=== PATIENT | male | born 1965 | race American Indian/Alaskan Native ===

== ENCOUNTER 2016-06-06 12:31 | Inpatient (IN) | payer OTHER ==
[2016-06-06] MEDS ORDERED: NACL 0.9% 1000 ML 1,000 ML IV ONE ×2 (14:13→15:40)
[2016-06-06] MEDS ORDERED: PROTONIX IV ONE (14:13)
[2016-06-06] MEDS ORDERED: PEPCID IV ONE (14:13)
[2016-06-06 14:34] LABS: Basophils % (Auto) 0.3 % (0.0-1.8); Eosinophils % (Auto) 0.1 % (0.0-4.3); Hemoglobin 7.6 gm/dl (11.8-15.2); Mean Corpuscular HGB Conc 33 % (32-34); Mean Corpuscular Hemoglobin 31 pg (28-32); Mean Corpuscular Volume 94 fl (84-94); Platelet Count 157 K/mm3 (140-440); Red Blood Count 2.44 M/mm3 (3.65-5.03); Red Cell Distribution Width 12.9 % (13.2-15.2); White Blood Count 12.7 K/mm3 (4.5-11.0)
[2016-06-06 14:42] LABS: INR 1.06 (0.87-1.13)
[2016-06-06 14:55] LABS: Alanine Aminotransferase 13 units/L (7-56); Albumin 3.1 g/dL (3.9-5); Albumin/Globulin Ratio 1.3 %; Alkaline Phosphatase 72 units/L (35-129); Anion Gap 21 mmol/L; Bilirubin,Total 0.4 mg/dL (0.1-1.2); Blood Urea Nitrogen 56 mg/dL (9-20); Calcium 7.6 mg/dL (8.4-10.2); Carbon Dioxide 19 mmol/L (22-30); Chloride 100.1 mmol/L (98-107); Glucose 466 mg/dL (75-100); Lipase 52 units/L (13-60); Sodium 133 mmol/L (137-145); Total Protein 5.5 g/dL (6.3-8.2)
[2016-06-06] MEDS ORDERED: ZOFRAN ONE (15:11)
[2016-06-06] MEDS ORDERED: ZOFRAN IV ONE (15:11)
[2016-06-06 15:24] LABS: Potassium 7.3 mmol/L (3.6-5.0)
[2016-06-06] MEDS ORDERED: NACL 0.9% 500 ML 500 ML IV ONE (15:42)
--- NOTE | 2016-06-06 15:46 | Emergency Department Report ---
HPI - General Chief Complaint: GI Bleed Time Seen by Provider: 06/06/16 14:12 - HPI HPI: The patient is a 42-year-old male with a history of diabetes, peptic ulcer and GI bleeding, presents for evaluation of abdominal pain and blood in his stool. He states that his abdominal pain has been mild, crampy in quality, upper abdominal in location: Excessive since onset at 11 AM this morning, approximately 1-2 hours prior to my evaluation. He states that he has expressed to episodes of dark bloody stools over the same duration. The patient denies fever, chills, night sweats, vomiting, hematemesis, dysuria, hematuria, flank pain, genital discharge, hematuria, hemoptysis, recurrent epistaxis, or easy bruising or bleeding. He states that he is not on a blood thinner. ED Past Medical Hx - Past Medical History Hx Hypertension: Yes Hx Heart Attack/AMI: Yes (EF 55-60%) Hx Diabetes: Yes Hx Arthritis: No Hx COPD: No Hx HIV: No Additional medical history: history of black stools - Social History Smoking Status: Former Smoker Substance Use Type: None - Medications Home Medications: Home Medications Medication Instructions Recorded Confirmed Last Taken Type Metformin HCl [Glucophage] 1,000 mg PO BID 06/06/16 06/06/16 06/05/16 History ED Review of Systems ROS: Stated complaint: BLOODY STOOLS/DIZZY Other details as noted in HPI Constitutional: denies: fever ENT: denies: throat or neck pain Respiratory: denies: cough, shortness of breath Cardiovascular: denies: chest pain Endocrine: denies unexplained weight loss or gain Gastrointestinal: reports abdominal pain, nausea Genitourinary: reports melana denies: dysuria Musculoskeletal: denies: leg swelling Skin: denies: rash Neurological: denies: headache Hematological/Lymphatic: denies: easy bleeding or easy bruising Psych: denies sadness or hopelessness \ Physical Exam - Physical Exam Vital Signs: Vital Signs 06/06/16 06/06/16 06/06/16 14:02 14:50 15:00 Temperature 97.0 F L Pulse Rate 77 84 85 Respiratory 20 14 14 Rate Blood Pressure 101/57 97/67 O2 Sat by Pulse 99 99 99 Oximetry 06/06/16 06/06/16 15:11 15:27 Temperature Pulse Rate 82 Respiratory 13 16 Rate Blood Pressure 97/67 O2 Sat by Pulse 100 99 Oximetry Physical Exam: General: well-nourished, well-developed, no acute distress Head: Normocephalic, atraumatic Eyes: normal sclera ENT: Mucous membranes are pale and dry Neck: No neck stiffness, no cervical adenopathy Respiratory: Breath sounds equal bilaterally, no wheezing, rales, or rhonchi Cardio: S1 and S2 present, no murmurs, rubs, gallops, capillary refill is delayed Abdomen: Normoactive bowel sounds, soft abdomen, epigastric tenderness to palpation present, no rigidity, no guarding or rebound tenderness Musc: No pitting edema Skin: No rash Neuro: no facial drooping, normal speech Psych: Normal affect ED Course Vital Signs 06/06/16 06/06/16 06/06/16 14:02 14:50 15:00 Temperature 97.0 F L Pulse Rate 77 84 85 Respiratory 20 14 14 Rate Blood Pressure 101/57 97/67 O2 Sat by Pulse 99 99 99 Oximetry 06/06/16 06/06/16 15:11 15:27 Temperature Pulse Rate 82 Respiratory 13 16 Rate Blood Pressure 97/67 O2 Sat by Pulse 100 99 Oximetry ED Medical Decision Making - Lab Data Result diagrams: 06/06/16 14:16 06/06/16 14:16 - Medical Decision Making The patient was seen and examined by myself. The patient is placed on a occupational health technician and continuous pulse ox. On initial evaluation, the patient was found to be in no distress, with hypertension, initial blood pressure 81/60 per EMS on arrival to triage. The patient is given 1 L normal saline fluid bolus via EMS. Evaluation orders are placed. The patient is given IV Pepcid and Protonix for treatment of GI bleeding and his pain. Lab results revealed low hemoglobin of 7.6, elevated potassium of 7.3, elevated glucose of 460, low bicarbonate, and elevated anion gap, consistent with diabetic ketoacidosis and severe anemia likely secondary to GI bleed. Otherwise labs were non-concerning including WBC, hemoglobin, hematocrit, electrolytes, renal function, LFTs, lipase, and urinalysis. The patient was reevaluated and found to have decreasing blood pressure, now in the 90s/60s. NS fluid bolus and one unit of PRBCs are ordered for treatment of the patient's hypovalemia and anemia. The patient is given IV insulin for treatment of DKA and hyperkalemia. I also ordered for treatment of hyperkalemia. The on-call hospitalist service was contacted. They agreed to admit the patient for further treatment and close monitoring. The ED admit order was placed. The patient was admitted in guarded condition. Critical Care Time: Yes Critical care time in (mins) excluding proc time.: 35 (35) Critical care attestation.: Due to the critical nature of this patients presentation, which necessitated multiple bedside assessments, manipulation and supportive measures to prevent further life threatening deterioration, I would like to bill for a total of 35 minutes of critical care time. This was exclusive of any separately billable procedures. Critical Care Time: 35 ED Disposition Clinical Impression: Severe anemia, Anemia requiring transfusions, Dehydration, Hypovolemic shock, Acute hyperkalemia DKA (diabetic ketoacidoses) Qualifiers: Diabetes mellitus type: type 2 Diabetes mellitus complication detail: without coma Qualified Code(s): E13.10 - Other specified diabetes mellitus with ketoacidosis without coma GI bleeding Qualifiers: GI bleed type/associated pathology: melena Qualified Code(s): K92.1 - Melena Disposition: OP ADMITTED IP TO THIS HOSP Is pt being admited?: Yes Does the pt Need Aspirin: Yes Condition: Critical Instructions: Diabetic Ketoacidosis (ED) Referrals: JOHNY STALLINGS MD [Primary Care Provider] - 3-5 Days Forms: Accompanied Note Time of Disposition: 15:46
[2016-06-06] MEDS ORDERED: CALCIUM GLUCONATE 1,000 MG in NACL 0.9% 100 ML IV ONE (16:00)
[2016-06-06] MEDS ORDERED: DULCOLAX PR PRN (21:28)
[2016-06-06] MEDS ORDERED: TYLENOL PO PRN (21:28)
[2016-06-06] MEDS ORDERED: ZOFRAN IV PRN (21:28)
[2016-06-06] MEDS ORDERED: DILAUDID IV PRN (21:28)
[2016-06-06] MEDS ORDERED: MILK OF MAGNESIA PO PRN (21:28)
[2016-06-06] MEDS ORDERED: SODIUM BICARBONATE IV ONE (21:31)
[2016-06-06] MEDS ORDERED: CALCIUM GLUCONATE 2,000 MG in NACL 0.9% 100 ML IV ONE (21:32)
[2016-06-06] MEDS ORDERED: NACL 0.45% 1000 ML 1,000 ML IV SCH (22:00)
--- NOTE | 2016-06-06 22:18 | History and Physical Report ---
CHIEF COMPLAINT: Abdominal pain and blood in the stool. HISTORY OF PRESENT ILLNESS: A 50-year-old male with history of diabetes, on metformin for many years, comes in for black tarry stools and abdominal pain. Abdominal pain is crampy in quality and the patient's pain is 5 on a scale of 1-10. Bright red blood per rectum and tarry stools. Hyperintense this morning. No fever, no chills. PAST MEDICAL HISTORY: Significant for hypertension, diabetes, acute IN, and peptic ulcer disease. SOCIAL HISTORY: Former smoker. PAST SURGICAL HISTORY: None. CURRENT MEDICATIONS: Metformin. REVIEW OF SYSTEMS: Bright blood per rectum and abdominal pain. Otherwise, review of systems negative. All 14-point review of systems done. PHYSICAL EXAMINATION: GENERAL: An young male, cooperative during examination. VITAL SIGNS: Temperature 97.0, pulse is 77, respirations are 20, blood pressure is 101/57, orthostatic, repeat blood pressure is 97/67. HEENT: Pale mucous membranes. NECK: Supple, no lymphadenopathy, no thyromegaly. LUNGS: Clear to auscultation and percussion. Good air entry. CARDIOVASCULAR: S1, S2 heard. No gallop, no murmur, no rub. Apical impulses in the left fifth intercostal space and midclavicular line. ABDOMEN: Soft, occult blood positive. MUSCULOSKELETAL SYSTEM: Normal. CENTRAL NERVOUS SYSTEM: Alert and oriented x 4, normal. NEUROLOGIC: No focal deficits. SKIN: Normal. LABORATORY DATA: Significant for sugar of 450 in the ER,. Sodium is 133, potassium is 7.3. BUN and creatinine 56 and 0.8. H and H is 7.6 and 23.0. EKG, normal sinus rhythm, nonspecific ST or T-wave change. ASSESSMENT: 1. Gastrointestinal bleed. The patient is started on Protonix drip. The patient to get a GI consult. The patient needs upper endoscopy. Possible lower endoscopy. 2. Non-insulin dependent diabetes, coverage for now. Adjust medications. Metformin is not sufficient. The patient's A1c ordered. 3. Hypertension. The patient not on any medications. We will monitor his blood pressures and start on antihypertensives if necessary. At this point, his blood pressures have been reasonable, 107/53. 4.Prerenal azotemia sec to GI Bleed-should correct with IV Fluids. PLAN: 1. In summary, the patient has a lower gastrointestinal bleed with dye stools. 2. Uncontrolled diabetes, hyperosmolar state. 3. Hyperkalemia. For the hyperkalemia, calcium gluconate and sodium bicarbonate were given. BMP to be checked again. 4. Deep venous thrombosis prophylaxis only with sequential compression devices. JOB# [id number] [facility] L[facility]
[2016-06-06 23:28] LABS: Hematocrit 21.1 % (35.5-45.6); Hemoglobin 7.1 gm/dl (11.8-15.2)
[2016-06-06 23:45] LABS: Anion Gap 16 mmol/L; BUN/Creatinine Ratio 46.25; Blood Urea Nitrogen 37 mg/dL (9-20); Calcium 7.6 mg/dL (8.4-10.2); Carbon Dioxide 22 mmol/L (22-30); Chloride 105.9 mmol/L (98-107); Glucose 205 mg/dL (75-100); Sodium 140 mmol/L (137-145)
[2016-06-07] MEDS: NOVOLOG SUB-Q SCH ×6 (01:01→18:45)
[2016-06-07] MEDS: PROTONIX 80 MG in NACL 0.9% 100 ML IV SCH ×3 (01:13→22:20)
--- NOTE | 2016-06-07 01:14 | Admit Criteria Form ---
Admission Criteria Documentation: HYPONATREMIA; HYPERNATREMIA; HYPOKALEMIA; HYPERKALEMIA; HYPOCALCEMIA; HYPERCALCEMIA Clinical Indications for Inpatient Care (Place 'X' for any and all applicable criteria): Ongoing inpatient care may be indicated for ANY ONE of the following [G](1)(2)(3 )(5): [ ]I. Hyponatremia with ANY ONE of the following: [ ]a) Sodium less than 130 mEq/L (mmol/L) (new) (6)(22) [ ]b) Sodium less than 135 mEq/L (mmol/L) with ANY ONE of the following: [ ]i) Severe medical etiology requiring inpatient management (eg, heart failure, hypovolemia) [ ]ii) Altered mental status [ ]iii) Seizures [ ]II. Hypernatremia with ANY ONE of the following: [ ]a) Sodium greater than 155 mEq/L (mmol/L) [ ]b) Sodium greater than 150 mEq/L (mmol/L) with ANY ONE of the following: [ ] i) Altered mental status [ ]ii) Seizures [ ]iii) Severe medical etiology (eg, hypovolemia, diabetes insipidus) [ ]iv) Severe weakness [ ]v) Severe medical etiology (eg, hemolysis, infection, drug overdose) [ ]III. Hypokalemia with ANY ONE of the following: [ ]a) Potassium less than 2.5 mEq/L (mmol/L) despite outpatient and emergency treatment [ ]b) Potassium less than 3.0 mEq/L (mmol/L) with ANY ONE of the following: [ ]i) Weakness [ ]ii) Cardiac abnormality (eg, arrhythmia, conduction disturbance) [ ]iii) Cardiac ischemia [ ]iv) Ileus [ ]v) Ongoing medical cause requiring inpatient management. ( e.g., acute renal wasting, SIADH) [ ]vi) Other severe symptoms [ X] IV. Hyperkalemia with ANY ONE of the following: [ X]a) Potassium greater than 6.5 mEq/L (mmol/L) [ ]b) Potassium greater than 5 mEq/L (mmol/L) with ANY ONE of the following: [ ]i) Severe ECG findings [H] [ ]ii) Acute worsening of renal failure (creatinine greater than 2.5 mg/dL (221 micromoles/L) or significant elevation for age and size) [ ] V. Hypocalcemia with ANY ONE of the following: [ ]a) Calcium less than 7 mg/dL (1.75 mmol/L) despite outpatient and emergency treatment(19) [ ]b) Calcium less than 8 mg/dL (2 mmol/L) with significant symptoms or findings; examples include: [ ]i) Cardiac abnormality (eg, arrhythmia or conduction disturbance) [ ]ii) Altered mental status [ ]iii) Seizures [ ]iv) Breathing difficulty [ ]v) Muscle spasms [ ]. Hypercalcemia with ANY ONE of the following: [ ]a) Calcium greater than 14 mg/dL (3.5 mmol/L) [ ]b) Calcium greater than 12 mg/dL (3 mmol/L) with ANY ONE of the following: [ ]i) Significant dehydration or hypovolemia as indicated by ANY ONE of the following(2): [ ]1. Clinically significant dehydration as indicated by ANY ONE of the following: [ ]A. Acute loss of weight from baseline (5% of body weight in adults, 9% in pediatric patients) [ ]B. Hemodynamic instability [ ]C. Acute renal failure [ ]D. Serum sodium greater than 150 mEq/L (mmol/L) [ ]2) Dehydration that is persistent indicated by ALL of the following: [ ]A. Oral rehydration therapy not tolerated or insufficient to adequately correct dehydration [ ]B. Appropriate intravenous treatment (eg, fluids ) does not readily correct dehydration ie, after 12 to 24 hours of treatment) [ ]ii) Significant symptoms or findings; examples include: [ ]1) Altered mental status [ ]2) Cardiac abnormality (eg, arrhythmia, conduction disturbance) [ ]3) Cardiac abnormality (eg, arrhythmia, conduction disturbance) The original [employer] content created by [employer] has been revised. The portions of the content which have been revised are identified through the use of italic text or in bold, and [facility] [employer] has neither reviewed nor approved the modified material. All other unmodified content is copyright [facility] [employer] Please see references footnoted in the original [facility] [employer] by [employer] edition 2016 Admission Criteria Met: Yes
[2016-06-07 07:01] LABS: Basophils % (Auto) 0.3 % (0.0-1.8); Eosinophils % (Auto) 0.3 % (0.0-4.3); Hematocrit 20.7 % (35.5-45.6); Hemoglobin 6.8 gm/dl (11.8-15.2); Mean Corpuscular HGB Conc 33 % (32-34); Mean Corpuscular Hemoglobin 31 pg (28-32); Mean Corpuscular Volume 94 fl (84-94); Platelet Count 123 K/mm3 (140-440); Red Cell Distribution Width 13.2 % (13.2-15.2); White Blood Count 13.1 K/mm3 (4.5-11.0)
[2016-06-07 07:24] LABS: Alanine Aminotransferase 11 units/L (7-56); Albumin 2.9 g/dL (3.9-5); Albumin/Globulin Ratio 1.2 %; Alkaline Phosphatase 60 units/L (35-129); Anion Gap 17 mmol/L; BUN/Creatinine Ratio 35.71; Bilirubin,Total 0.4 mg/dL (0.1-1.2); Blood Urea Nitrogen 25 mg/dL (9-20); Carbon Dioxide 22 mmol/L (22-30); Chloride 106.8 mmol/L (98-107); Glucose 208 mg/dL (75-100); Sodium 142 mmol/L (137-145); Total Protein 5.3 g/dL (6.3-8.2)
[2016-06-07] MEDS ORDERED: NACL 0.9% 500 ML 500 ML IV ONE (10:00)
[2016-06-07] MEDS ORDERED: NACL 0.9% 500 ML 500 ML IV SCH ×2 (12:00→18:00)
[2016-06-07] MEDS ORDERED: NACL 0.9% 1000 ML 1,000 ML ONE (13:45)
[2016-06-07] MEDS ORDERED: NACL 0.9% 1000 ML 1,000 ML IV SCH (14:00)
--- NOTE | 2016-06-07 14:04 | Anesthesia Day of Surgery ---
Anesthesia Day of Surgery - Day of Surgery Patient Examined: Yes Patient H&P Reviewed: Yes Patient is NPO: Yes Beta Blockers: Yes Cardiac Clearance: No Pulmonary Clearance: No
--- NOTE | 2016-06-07 14:05 | Anesthesia Consultation ---
Anesthesia Consult and Med Hx Date of service: 06/07/16 - Airway Anesthetic Teeth Evaluation: Good ROM Head & Neck: Adequate Mental/Hyoid Distance: Adequate Mallampati Class: Class II Intubation Access Assessment: Probably Good - Pulmonary Exam CTA: Yes (clear) - Cardiac Exam Cardiac Exam: RRR - Pre-Operative Health Status ASA Pre-Surgery Classification: ASA4 Proposed Anesthetic Plan: MAC - Pulmonary Hx Asthma: No COPD: No Hx Pneumonia: No - Cardiovascular System Hx Hypertension: Yes Hx Coronary Artery Disease: Yes (stemi, s/p angioplasty and stenting on 12/30/15 ) Hx Heart Attack/AMI: Yes Hx Angina: Yes (none since angioplasty) Hx Percutaneous Transluminal Coronary Angioplasty (PTCA): Yes - Central Nervous System Hx Psychiatric Problems: No - Gastrointestinal Hx Ulcer: Yes - Endocrine Hx End Stage Renal Disease: No Hx Insulin Dependent Diabetes: Yes - Hematic Hx Anemia: No - Other Systems Hx Alcohol Use: Yes (occasional) Hx Cancer: No - Additional Comments Anesthesia Medical History Comments: receiving PRBC now for anemia
--- NOTE | 2016-06-07 14:12 | Progress Note ---
Assessment and Plan Assessment and plan: Acute GI bleed. he has bloody stools. GI consulted. For endoscopy today. Anemia due to acute blood loss. Hemoglobin currently 6.8. Was 7.6 on admission and he has had 1 unit PRBC. Transfuse 2 more units PRBC. I discussed with patient. Hyperkalemia. This is now resolved. Potassium was 7.3 on admission but is now 4.0 after treatment. Diabetes mellitus type 2. Check fingerstick glucose before every meal and at bedtime. Obesity Full CODE STATUS History Interval history: Bloody stools, Abdominal pain Hospitalist Physical - Physical exam Narrative exam: Gen: Not in acute distress, obese HEENT: Normocephalic, atraumatic Neck: supple, no JVD Lungs:Lungs clear to auscultation, bilaterally, no crackles or wheeze Heart S1-S2 regular, no murmurs rubs or gallop, Abdomen: soft, mild tender, non distended, normal bowel sounds , Ext: No edema, clubbing or cyanosis. Neuro: Awake.alert, oriented x 3, non focal - Constitutional Vitals: Temp Pulse Resp BP Pulse Ox 98.6 F 88 11 L 120/67 97 06/07/16 14:05 06/07/16 14:05 06/07/16 14:05 06/07/16 14:05 06/07/16 14:05 Results - Labs CBC & Chem 7: 06/07/16 06:05 06/07/16 06:05 Labs: Laboratory Last Values WBC 13.1 K/mm3 (4.5-11.0) H 06/07/16 06:05 RBC 2.20 M/mm3 (3.65-5.03) L 06/07/16 06:05 Hgb 6.8 gm/dl (11.8-15.2) L 06/07/16 06:05 Hct 20.7 % (35.5-45.6) L 06/07/16 06:05 MCV 94 fl (84-94) 06/07/16 06:05 MCH 31 pg (28-32) 06/07/16 06:05 MCHC 33 % (32-34) 06/07/16 06:05 RDW 13.2 % (13.2-15.2) 06/07/16 06:05 Plt Count 123 K/mm3 (140-440) L 06/07/16 06:05 Lymph % (Auto) 12.3 % (13.4-35.0) L 06/07/16 06:05 [place] % (Auto) 8.0 % (0.0-7.3) H 06/07/16 06:05 Eos % (Auto) 0.3 % (0.0-4.3) 06/07/16 06:05 Baso % (Auto) 0.3 % (0.0-1.8) 06/07/16 06:05 Lymph # 1.6 K/mm3 (1.2-5.4) 06/07/16 06:05 [place] # 1.1 K/mm3 (0.0-0.8) H 06/07/16 06:05 Eos # 0.0 K/mm3 (0.0-0.4) 06/07/16 06:05 Baso # 0.0 K/mm3 (0.0-0.1) 06/07/16 06:05 Seg Neutrophils % 79.1 % (40.0-70.0) H 06/07/16 06:05 Seg Neutrophils # 10.4 K/mm3 (1.8-7.7) H 06/07/16 06:05 PT 13.7 Sec. (12.2-14.9) 06/06/16 14:16 INR 1.06 (0.87-1.13) 06/06/16 14:16 APTT 20.0 Sec. (24.2-36.6) L 06/06/16 14:16 VBG pH 7.257 (7.320-7.420) L 06/06/16 14:49 Sodium 142 mmol/L (137-145) 06/07/16 06:05 Potassium 4.0 mmol/L (3.6-5.0) 06/07/16 06:05 Chloride 106.8 mmol/L (98-107) 06/07/16 06:05 Carbon Dioxide 22 mmol/L (22-30) 06/07/16 06:05 Anion Gap 17 mmol/L 06/07/16 06:05 BUN 25 mg/dL (9-20) H 06/07/16 06:05 Creatinine 0.7 mg/dL (0.8-1.5) L 06/07/16 06:05 Estimated GFR > 60 ml/min 06/07/16 06:05 BUN/Creatinine Ratio 35.71 % 06/07/16 06:05 Glucose 208 mg/dL (75-100) H 06/07/16 06:05 POC Glucose 271 (70-105) H 06/06/16 17:35 Hemoglobin A1c 10.7 % (4-6) H 06/07/16 06:05 Lactic Acid 0.8 mmol/L (0.7-2.0) 06/07/16 08:36 Calcium 8.0 mg/dL (8.4-10.2) L 06/07/16 06:05 Total Bilirubin 0.4 mg/dL (0.1-1.2) 06/07/16 06:05 AST 10 units/L (5-40) 06/07/16 06:05 ALT 11 units/L (7-56) 06/07/16 06:05 Alkaline Phosphatase 60 units/L (35-129) 06/07/16 06:05 Total Protein 5.3 g/dL (6.3-8.2) L 06/07/16 06:05 Albumin 2.9 g/dL (3.9-5) L 06/07/16 06:05 Albumin/Globulin Ratio 1.2 % 06/07/16 06:05 Lipase 52 units/L (13-60) 06/06/16 14:16 Blood Type O POSITIVE 06/06/16 14:16 Antibody Screen TNR 06/06/16 14:16 VANDA Antibody Screen Negative 06/06/16 14:16 Crossmatch See Detail 06/06/16 14:16
[2016-06-07] MEDS ORDERED: DIPRIVAN 10 MG/ML IV ONE ×2 (14:43→14:44)
[2016-06-07] MEDS ORDERED: XYLOCAINE MPF 2% ONE (14:44)
--- NOTE | 2016-06-07 15:03 | Post Anesthesia Evaluation ---
- Post Anesthesia Evaluation Patient Participated: Yes Airway Patent: Yes Stable Respiratory Function: Yes Nausea/Vomiting: No Temp > 96.8F: Yes Pain Manageable: Yes Adequeate Hydration: Yes Anesthesia Complications: No Block Receding Appropriately: Not Applicable Patient on Ventilator: No
--- NOTE | 2016-06-07 15:06 | Post Operative Note ---
Pre-op diagnosis: anemia,. gi bleed Post-op diagnosis: same Findings: EGD: hiatal hernia - white based (6-10 mm) ulcer x 2 antrum and incisura (bx's) - signs previous pud duodenum - negative other Procedure: EGD Anesthesia: MAC Surgeon: ОЛЬГА DOMINIQUE Estimated blood loss: none Pathology: list Specimen disposition: to lab Condition: stable Disposition: floor
--- NOTE | 2016-06-07 16:36 | Operative Report ---
INDICATION: 1. Anemia. 2. GI bleed. MEDICATIONS: Propofol per STEP DOWN NURSE. COMPLICATIONS: None. DESCRIPTION OF PROCEDURE: The patient was brought to procedure suite. The patient had the procedure discussed with him at length. All risks, complications, and benefits discussed, to which the patient signed for the procedure to be performed. The patient was placed in left lateral decubitus position. Mouth block was placed in the patient's oral cavity. After adequate sedation medication as above, the endoscope was introduced into the mouth and brought to the level of the second portion of duodenum. Retroflexion view performed. The patient's vital signs remained stable throughout the procedure. FINDINGS: There was irregular Z line noted at 37 cm from the gums. Small hiatal hernia at GE junction. The esophagus otherwise appeared to be normal. There was a 9-11 mm white based ulcer somewhat gastric antrum. No significant bleeding stigmata noted. Biopsies were taken and sent to pathology. Mild gastritis noted in the antrum. The stomach otherwise appeared to be normal. There were signs of previous peptic ulcer disease and was slight deformity noted in duodenal bulb. The duodenum otherwise appeared to be normal. Retroflexion view performed in the stomach showed no other pathology other than noted above. The patient tolerated the procedure well. No complications during the procedure. IMPRESSION: 1. Hiatal hernia. 2. Otherwise, normal esophagus. 3. Ulcers x 2 distal stomach with biopsy performed; otherwise normal stomach. 4. Somewhat deformed duodenal bulb, but otherwise normal duodenum. RECOMMENDATIONS: 1. Follow up biopsy results. 2. Stool for H. pylori, if present we will treat. 3. PPI p.o. b.i.d. 4. Avoid NSAIDs and aspirin. 5. If H and H stable discharge from GI standpoint. JOB# [id number] [facility] [facility]
[2016-06-07 17:06] LABS: Hematocrit 23.1 % (35.5-45.6); Hemoglobin 7.6 gm/dl (11.8-15.2)
--- NOTE | 2016-06-08 01:20 | Consultation ---
INDICATION: 1. Melena. 2. Possible GI bleed. HISTORY OF PRESENT ILLNESS: The patient is a 50-year-old black male with history of diabetes, history of peptic ulcer disease with perforation, status post surgery in 2016 and now presents with melena and black stools. The patient reports recent epigastric pain and started having black stools for the last 4-5 days. He reports coffee emesis. He reports no weight loss. The patient subsequently came to the Emergency Room, was evaluated and admitted, and GI consulted. PAST MEDICAL HISTORY: 1. Hypertension. 2. Diabetes. 3. Coronary artery disease. 4. Status post perforated ulcer. MEDICATIONS: See chart. ALLERGIES: No known drug allergies. SOCIAL HISTORY: Denies alcohol or tobacco. FAMILY HISTORY: Negative for colon cancer. REVIEW OF SYSTEMS: GENERAL: Reports mild weakness. HEENT: No visual complaints or tinnitus. PULMONARY: No shortness of breath. CARDIAVASCULAR: No chest pain. GASTROINTESTINAL: Reports black stools. All points of 13-point review of systems otherwise negative. PHYSICAL EXAMINATION: VITAL SIGNS: Temperature of 98.6, pulse 80, respirations 18, blood pressure 130/80. GENERAL: Fairly nourished, with no acute distress. HEENT: Pupils equal, round, reactive. PULMONARY: Clear to auscultation. CARDIOVASCULAR: Regular rate rhythm. ABDOMEN: Soft. SKIN: No obvious rashes. LABORATORY DATA: White count of 13.1, hemoglobin and hematocrit of 6.8 and 20.7, platelet count of 123. Coags within normal limits. Chem-7 stable. LFTs within normal limits. ASSESSMENT AND PLAN: A 50-year-old male with a history of perforated ulcer, now presents with signs and symptoms of upper gastrointestinal bleed. PLAN: 1. We will follow hematocrit and transfuse as needed. 2. PPI IV b.i.d. 3. Plan EGD today. 4. Further recommendation based on endoscopy results. JOB# [id number] [facility]/NTS MTDD
[2016-06-08] MEDS: NOVOLOG SUB-Q SCH ×3 (04:00→10:48)
[2016-06-08 07:58] LABS: Hematocrit 23.4 % (35.5-45.6); Hemoglobin 7.8 gm/dl (11.8-15.2)
[2016-06-08] MEDS: PROTONIX 80 MG in NACL 0.9% 100 ML IV SCH (08:00)
--- NOTE | 2016-06-08 09:28 | Discharge Summary ---
Providers - Providers Date of Admission: 06/06/16 19:20 Date of discharge: 06/08/16 Attending physician: TINO WYNNE 06/06/16 21:28 Consult to Physician [CONS] Routine Consulting Provider: ROSE GASTELUM Reason For Exam: gi hemorrhage Place consult to:: Office Notified:: yes Primary care physician: JOHNY STALLINGS Hospitalization Condition: Critical Disposition: STILL A PATIENT - Discharge Diagnoses (1) Anemia due to acute blood loss Status: Acute (2) Gastric ulcer Status: Acute Qualifiers: Gastric ulcer chronicity: G (3) Acute GI bleeding Status: Acute (4) Hypokalemia Status: Acute (5) Acute hyperkalemia Status: Acute (6) Hyperosmolar non-ketotic state in patient with type 2 diabetes mellitus Status: Acute Core Measure Documentation - Palliative Care Palliative Care/ Comfort Measures: Not Applicable Exam - Constitutional Vitals: Temp Pulse Resp BP Pulse Ox 98.2 F 83 18 133/69 99 06/08/16 04:44 06/08/16 04:44 06/08/16 04:44 06/08/16 04:44 06/08/16 04:44 Plan Activity: no restrictions Diet: low fat, low cholesterol, low salt, diabetic Additional Instructions: 1.Follow up with Dr. Stallings in 3-5 days. 2.Follow up with Dr. Carlos Hollins in 1 week Follow up with: JOHNY STALLINGS MD [Primary Care Provider] - 3-5 Days Forms: Accompanied Note Prescriptions: Cephalexin [Keflex] 500 mg PO Q12HR #14 cap Insulin NPH/Regular [NovoLIN 70/30] 10 unit SUB-Q BIDDIAB #1 vial Pantoprazole [Protonix] 40 mg PO BID #60 tablet
[2016-06-08 10:13] VITALS: BP 143/78
[2016-06-08 11:55] LABS: Bilirubin,Urine NEG (Negative); Blood,Urine NEG (Negative); Ketones,Urine TR mg/dL (Negative); Leukocyte Esterase,Urine NEG (Negative); Mucus,Urine FEW /HPF; Nitrite,Urine NEG (Negative); Protein,Urine <15 mg/dL mg/dL (Negative); Urobilinogen,Urine < 2.0 mg/dL (<2.0); WBC,Urine < 1.0 /HPF (0.0-6.0)
[2016-06-08] MEDS ORDERED: NOVOLOG SUB-Q ONE (12:04)
--- NOTE | 2016-06-08 12:53 | Gastroenterology Progress Note ---
Assessment and Plan GI: stable w/o further signs bleeding overnight - ppi qd - avoid nsaids/asa as possible - ok to d/c, call if needed Subjective Date of service: 06/08/16 Interval history: - no GI complaints overnight Objective - Constitutional Vitals: Temp Pulse Resp BP Pulse Ox 98.4 F 86 16 143/78 100 06/08/16 10:12 06/08/16 10:12 06/08/16 10:12 06/08/16 10:12 06/08/16 10:12 General appearance: no acute distress - Respiratory Respiratory: bilateral: CTA - Cardiovascular Rhythm: regular Heart Sounds: Present: S1 & S2 - Gastrointestinal General gastrointestinal: Present: soft, non-tender, non-distended - Labs CBC & Chem 7: 06/08/16 06:58 06/07/16 06:05 Labs: Laboratory Results - last 24 hr 06/06/16 06/07/16 06/07/16 23:54 04:56 08:27 Hgb Hct POC Glucose 222 H 228 H 333 H Urine Color Urine Turbidity Urine pH Ur Specific [place] Urine Protein Urine Glucose (UA) Urine Ketones Urine Blood Urine Nitrite Urine Bilirubin Urine Urobilinogen Ur Leukocyte Esterase Urine WBC (Auto) Urine RBC (Auto) U Epithel Cells (Auto) Urine Mucus 06/07/16 06/07/16 06/07/16 12:31 16:48 17:51 Hgb 7.6 L Hct 23.1 L POC Glucose 210 H 310 H Urine Color Urine Turbidity Urine pH Ur Specific [place] Urine Protein Urine Glucose (UA) Urine Ketones Urine Blood Urine Nitrite Urine Bilirubin Urine Urobilinogen Ur Leukocyte Esterase Urine WBC (Auto) Urine RBC (Auto) U Epithel Cells (Auto) Urine Mucus 06/07/16 06/08/16 06/08/16 20:24 06:41 06:58 Hgb 7.8 L Hct 23.4 L POC Glucose 411 H 260 H Urine Color Urine Turbidity Urine pH Ur Specific [place] Urine Protein Urine Glucose (UA) Urine Ketones Urine Blood Urine Nitrite Urine Bilirubin Urine Urobilinogen Ur Leukocyte Esterase Urine WBC (Auto) Urine RBC (Auto) U Epithel Cells (Auto) Urine Mucus 06/08/16 Unknown Hgb Hct POC Glucose Urine Color Straw Urine Turbidity Clear Urine pH 6.0 Ur Specific [place] 1.015 Urine Protein <15 mg/dl Urine Glucose (UA) >=500 Urine Ketones Tr Urine Blood Neg Urine Nitrite Neg Urine Bilirubin Neg Urine Urobilinogen < 2.0 Ur Leukocyte Esterase Neg Urine WBC (Auto) < 1.0 Urine RBC (Auto) 2.0 U Epithel Cells (Auto) < 1.0 Urine Mucus Few
[2016-06-08] MEDS ORDERED: KEFLEX PO SCH (13:00)
[2016-06-08] MEDS ORDERED: PROTONIX PO SCH (22:00)
== END 2016-06-08 18:01 | disposition home or self-care (01) | DRG 377 ==
LOC: ED 12:31 → 4A 19:20
PROVIDERS: ADMIT Internal Medicine; ATTEND Internal Medicine
PROC: 30233N1 Transfusion of Nonautologous Red Blood Cells into Peripheral Vein, Percutaneous Approach (ICD-10-PCS; principal; 2016-06-07)
PROC: 0DB68ZX Excision of Stomach, Via Natural or Artificial Opening Endoscopic, Diagnostic (ICD-10-PCS; 2016-06-07)
DX: K25.0 Acute gastric ulcer with hemorrhage (principal); E11.00 Type 2 diabetes mellitus with hyperosmolarity without nonketotic hyperglycemic-hyperosmolar coma (NKHHC); D62 Acute posthemorrhagic anemia; I10 Essential (primary) hypertension; K44.9 Diaphragmatic hernia without obstruction or gangrene; E87.5 Hyperkalemia; E86.0 Dehydration; E66.9 Obesity, unspecified; E11.9 Type 2 diabetes mellitus without complications; I25.10 Atherosclerotic heart disease of native coronary artery without angina pectoris; Z68.32 Body mass index [BMI] 32.0-32.9, adult; I25.2 Old myocardial infarction; Z87.891 Personal history of nicotine dependence; Z87.11 Personal history of peptic ulcer disease; Z79.84 Long term (current) use of oral hypoglycemic drugs
CPT/HCPCS: 36415; 80048; 80053; 81001; 82010; 82140; 82805; 82962; 83036; 83690; 85014; 85018; 85025; 85610; 85730; 86850; 86900; 86901; 86920; 87086; 88305; 88342; 93005; 93010; 96361; 96365; 96375; 99291; C9113; J0610; J1815; J2405; J2704; J7030; J7040; P9016

== ENCOUNTER 2016-10-23 22:12 | Emergency (ER) | payer SELFPAY ==
[2016-10-24] MEDS ORDERED: XYLOCAINE 2%/ EPI 1:200,000 INFILTRATI ONE (01:48)
[2016-10-24] MEDS ORDERED: NORCO 5/325 PO ONE (02:08)
[2016-10-24] MEDS ORDERED: NORCO 5/325 ONE (02:08)
[2016-10-24] MEDS ORDERED: ZOFRAN ODT ONE (02:08)
[2016-10-24] MEDS ORDERED: ZOFRAN ODT PO ONE (02:08)
[2016-10-24] MEDS ORDERED: MORPHINE ONE (02:40)
[2016-10-24 02:48] LABS: Basophils % (Auto) 0.9 % (0.0-1.8); Eosinophils % (Auto) 1.2 % (0.0-4.3); Hematocrit 42.9 % (35.5-45.6); Hemoglobin 14.5 gm/dl (11.8-15.2); Mean Corpuscular HGB Conc 34 % (32-34); Mean Corpuscular Hemoglobin 30 pg (28-32); Mean Corpuscular Volume 90 fl (84-94); Platelet Count 167 K/mm3 (140-440); Red Blood Count 4.78 M/mm3 (3.65-5.03); Red Cell Distribution Width 17.3 % (13.2-15.2); White Blood Count 12.2 K/mm3 (4.5-11.0)
[2016-10-24] MEDS ORDERED: MORPHINE IM ONE (02:48)
[2016-10-24] MEDS ORDERED: CLEOCIN 900 MG/50 mL 900 MG/50 ML BAG IV ONE (02:49)
[2016-10-24] MEDS ORDERED: NACL 0.9% 500 ML 500 ML IV ONE (02:49)
--- NOTE | 2016-10-24 03:04 | Emergency Department Report ---
- General Chief complaint: Skin/Abscess/Foreign Body Stated complaint: FEVER, BOIL, COUGH Time Seen by Provider: 10/24/16 01:17 Source: patient Mode of arrival: Ambulatory Limitations: No Limitations - History of Present Illness Initial comments: 51-year-old male past medical history hypertension, CT presents with complaint of one week of right upper back abscess. Patient denies fever or chills. Denies nausea or vomiting. Denies headache or dizziness. Accompanied by . Patient states that he has noticed redness of his skin behind right trapezius region. Noticed purulent drainage over the last day. Significant swelling of skin in this area. Visible purulent drainage in area MD complaint: abscess/boil Onset/Timin -: week(s) Tetanus Up to Date: yes Location: back (right upper back) Severity: moderate Severity scale (0 -10): 5 Quality: burning, aching Consistency: constant Improves with: none Worsens with: none Context: none Treatments Prior to Arrival: none - Related Data Previous Rx's Medication Instructions Recorded Last Taken Type Cephalexin [Keflex] 500 mg PO Q12HR #14 cap 06/08/16 Unknown Rx Insulin NPH/Regular [NovoLIN 70/30] 10 unit SUB-Q BIDDIAB #1 vial 06/08/16 Unknown Rx Pantoprazole [Protonix] 40 mg PO BID #60 tablet 06/08/16 Unknown Rx Cephalexin [Keflex] 500 mg PO Q6HR #28 capsule 10/24/16 Unknown Rx HYDROcodone/APAP 5-325 [[place] 1 each PO Q6HR PRN #8 tablet 10/24/16 Unknown Rx 5/325] Naproxen [Naprosyn TAB] 375 mg PO BID PRN #20 tablet 10/24/16 Unknown Rx Sulfamethoxazole/Trimethoprim 1 each PO BID #14 tablet 10/24/16 Unknown Rx [Bactrim DS TAB] Allergies Allergy/AdvReac Type Severity Reaction Status Date / Time No Known Allergies Allergy Unverified 02/27/13 00:56 Abscess Boil HPI - HPI Chief Complaint: Skin/Abscess/Foreign Body Stated Complaint: FEVER, BOIL, COUGH Time Seen by Provider: 10/24/16 01:17 Home Medications: Previous Rx's Medication Instructions Recorded Last Taken Type Cephalexin [Keflex] 500 mg PO Q12HR #14 cap 04/25/17 Unknown Rx Insulin NPH/Regular [NovoLIN 70/30] 10 unit SUB-Q BIDDIAB #1 vial 06/08/16 Unknown Rx Pantoprazole [Protonix] 40 mg PO BID #60 tablet 06/08/16 Unknown Rx Cephalexin [Keflex] 500 mg PO Q6HR #28 capsule 10/24/16 Unknown Rx HYDROcodone/APAP 5-325 [[place] 1 each PO Q6HR PRN #8 tablet 10/24/16 Unknown Rx 5/325] Naproxen [Naprosyn TAB] 375 mg PO BID PRN #20 tablet 10/24/16 Unknown Rx Sulfamethoxazole/Trimethoprim 1 each PO BID #14 tablet 10/24/16 Unknown Rx [Bactrim DS TAB] Allergies/Adverse Reactions: Allergies Allergy/AdvReac Type Severity Reaction Status Date / Time No Known Allergies Allergy Unverified 02/27/13 00:56 ED Review of Systems ROS: Stated complaint: FEVER, BOIL, COUGH Other details as noted in HPI Constitutional: denies: chills, fever Eyes: denies: eye pain, eye discharge, vision change ENT: denies: ear pain, throat pain Respiratory: denies: cough, shortness of breath, wheezing Cardiovascular: denies: chest pain, palpitations Endocrine: no symptoms reported Gastrointestinal: denies: abdominal pain, nausea, diarrhea Genitourinary: denies: urgency, dysuria Musculoskeletal: denies: back pain, joint swelling, arthralgia Skin: as per HPI (patient has visible abscess in right upper back region behind right trapezius). denies: rash, lesions Neurological: denies: headache, weakness, paresthesias Psychiatric: denies: anxiety, depression Hematological/Lymphatic: denies: easy bleeding, easy bruising ED Past Medical Hx - Past Medical History Previous Medical History?: Yes Hx Hypertension: Yes Hx Heart Attack/AMI: Yes Hx Diabetes: Yes Hx Arthritis: No Hx Asthma: No Hx COPD: No Hx HIV: No Additional medical history: history of black stools - Surgical History Past Surgical History?: Yes Additional Surgical History: stomach, cardiac stents - Social History Smoking Status: Former Smoker Substance Use Type: Alcohol - Medications Home Medications: Home Medications Medication Instructions Recorded Confirmed Last Taken Type Cephalexin [Keflex] 500 mg PO Q12HR #14 cap 06/08/16 Unknown Rx Insulin NPH/Regular [NovoLIN 70/30] 10 unit SUB-Q BIDDIAB #1 vial 06/08/16 Unknown Rx Pantoprazole [Protonix] 40 mg PO BID #60 tablet 06/08/16 Unknown Rx Cephalexin [Keflex] 500 mg PO Q6HR #28 capsule 10/24/16 Unknown Rx HYDROcodone/APAP 5-325 [[place] 1 each PO Q6HR PRN #8 tablet 10/24/16 Unknown Rx 5/325] Naproxen [Naprosyn TAB] 375 mg PO BID PRN #20 tablet 10/24/16 Unknown Rx Sulfamethoxazole/Trimethoprim 1 each PO BID #14 tablet 10/24/16 Unknown Rx [Bactrim DS TAB] ED Physical Exam - General Limitations: No Limitations General appearance: alert, in no apparent distress - Head Head exam: Present: atraumatic, normocephalic - Eye Eye exam: Present: normal appearance, PERRL, EOMI - ENT ENT exam: Present: mucous membranes moist - Neck Neck exam: Present: normal inspection, full ROM (neck flexion and extension intact) - Respiratory Respiratory exam: Present: normal lung sounds bilaterally. Absent: respiratory distress - Cardiovascular Cardiovascular Exam: Present: regular rate, normal rhythm. Absent: systolic murmur, diastolic murmur, rubs, gallop - GI/Abdominal GI/Abdominal exam: Present: soft, normal bowel sounds - Rectal Rectal exam: Present: deferred - Extremities Exam Extremities exam: Present: normal inspection - Back Exam Back exam: Present: normal inspection - Expanded Back Exam Expanded 1 - 10-12 cm diameter abscess with central cellulitis and purulent drainage from center. - Neurological Exam Neurological exam: Present: alert, oriented X3, CN II-XII intact, normal gait - Psychiatric Psychiatric exam: Present: normal affect, normal mood - Skin Skin exam: Present: warm, dry, intact, normal color, other (visible abscess right upper posterior shoulder/trapezius/right upper back region with visible purulent drainage). Absent: rash ED Course Vital Signs 10/23/16 10/24/16 22:28 03:38 Temperature 94.3 F L 99.8 F H Pulse Rate 94 H 75 Respiratory 18 16 Rate Blood Pressure 168/103 Blood Pressure 148/82 [Right] O2 Sat by Pulse 96 Oximetry - I & D Right Upper Back Type of Procedure: Simple Site: right upper back Blade Size: 11 I & D Procedure: betadine prep, sterile drapes applied, sterile dressing applied , gauze wick placed Progress: Area infiltrated with lidocaine 2% with epinephrine. Good local anesthesia achieved. Vertical stab incision made at center of abscess. ED Medical Decision Making - Lab Data Result diagrams: 10/24/16 02:32 10/24/16 02:32 - Medical Decision Making A/P: Right upper back abscess, right upper back cellulitis 1-labs show hyperglycemia, leukocytosis, lactic acid negative 2, wound culture sent 2-Pt given dose of IV clindamycin while in ED, will discharge with Bactrim and Keflex. Patient and his are requesting another medicine other than clindamycin. They're unable to elaborate why they want a different medicine. Bactrim and Keflex will cover both MRSA and strep cellulitis therefore I will prescribe the patient these 3-moderate amount of purulent drainage from the incision site, wound packed with iodoform gauze strip approximately 4 inches, half-inch strip. 4- I advised patient to return to the ED in 48 hours for wound check or to return to the ED for any fevers chills worsened pain reaccumulation of abscess nausea or vomiting inability to tolerate by mouth. Pt and his agreed to this plan. 5- normal vital signs upon discharge Critical care attestation.: If time is entered above; I have spent that time in minutes in the direct care of this critically ill patient, excluding procedure time. ED Disposition Clinical Impression: Abscess of upper back excluding scapular region, Abscess Disposition: DC- TO HOME OR SELFCARE Is pt being admited?: No Does the pt Need Aspirin: No Condition: Stable Instructions: Cellulitis (ED), Abscess Incision and Drainage (ED), Abscess (ED) Additional Instructions: Return to the ED in 48 hours for wound check Prescriptions: Cephalexin [Keflex] 500 mg PO Q6HR #28 capsule HYDROcodone/APAP 5-325 [[place] 5/325] 1 each PO Q6HR PRN #8 tablet PRN Reason: Pain Naproxen [Naprosyn TAB] 375 mg PO BID PRN #20 tablet PRN Reason: Pain Sulfamethoxazole/Trimethoprim [Bactrim DS TAB] 1 each PO BID #14 tablet Referrals: JOHNY STALLINGS MD [Primary Care Provider] - 3-5 Days Forms: Accompanied Note, Work/School Release Form(ED)
[2016-10-24 03:07] LABS: Anion Gap 22 mmol/L; BUN/Creatinine Ratio 11.66; Blood Urea Nitrogen 7 mg/dL (9-20); Calcium 9.3 mg/dL (8.4-10.2); Carbon Dioxide 23 mmol/L (22-30); Chloride 93.2 mmol/L (98-107); Glucose 213 mg/dL (75-100); Potassium 4.1 mmol/L (3.6-5.0); Sodium 134 mmol/L (137-145)
[2016-10-24 03:38] VITALS: BP 148/82
[2016-10-24 03:38] LABS: Erythrocyte Sedimentation Rate 18 mm/Hr (0-20)
== END 2016-10-24 04:10 | disposition home or self-care (01) ==
LOC: ED 22:12
DX: L02.212 Cutaneous abscess of back [any part, except buttock and flank] (principal); I10 Essential (primary) hypertension; I25.2 Old myocardial infarction; E11.9 Type 2 diabetes mellitus without complications; Z87.891 Personal history of nicotine dependence; Z79.4 Long term (current) use of insulin
CPT/HCPCS: 10060; 36415; 80048; 82140; 82962; 85025; 85652; 87076; 87116; 87186; 96365; 96372; 99284; J2270; J7040; Q0162

== ENCOUNTER 2018-08-15 10:34 | Emergency (ER) | payer SELFPAY ==
[2018-08-15 11:05] VITALS: BP 127/74
--- NOTE | 2018-08-15 12:19 | Emergency Department Report ---
ED General Adult HPI - General Chief complaint: Extremity Problem,Nontraumatic Stated complaint: L FOOT/R EYE PAIN Time Seen by Provider: 08/15/18 11:11 Source: patient Mode of arrival: Ambulatory Limitations: No Limitations - History of Present Illness Initial comments: Patient is a 53-year-old male who presents to emergency room complaining of left knee pain and swelling that began about 6-7 days ago. He denies any fall or injury. He does not report any previous injury. He states that approximately 5 days ago he also began to have a "cloud over his vision" in his right eye. He denies any numbness, weakness, or BIANCHI. He has a PMHx of DM. He states he has not seen an eye doctor in 10 years. - Related Data Previous Rx's Medication Instructions Recorded Last Taken Type Insulin NPH/Regular [NovoLIN 70/30] 10 unit SUB-Q BIDDIAB #1 vial 06/08/16 Unknown Rx Pantoprazole [Protonix] 40 mg PO BID #60 tablet 06/08/16 Unknown Rx cephALEXin [Keflex] 500 mg PO Q12HR #14 cap 06/08/16 Unknown Rx HYDROcodone/APAP 5-325 [[place] 1 each PO Q6HR PRN #8 tablet 10/24/16 Unknown Rx 5/325] Naproxen [Naprosyn TAB] 375 mg PO BID PRN #20 tablet 10/24/16 Unknown Rx Sulfamethoxazole/Trimethoprim 1 each PO BID #14 tablet 10/24/16 Unknown Rx [Bactrim DS TAB] cephALEXin [Keflex] 500 mg PO Q6HR #28 capsule 10/24/16 Unknown Rx Ibuprofen [Motrin 800 MG tab] 800 mg PO Q8HR PRN #20 tablet 08/15/18 Unknown Rx Allergies Allergy/AdvReac Type Severity Reaction Status Date / Time No Known Allergies Allergy Unverified 02/27/13 00:56 ED Review of Systems ROS: Stated complaint: L FOOT/R EYE PAIN Other details as noted in HPI Comment: All other systems reviewed and negative ED Past Medical Hx - Past Medical History Previous Medical History?: Yes Hx Hypertension: Yes Hx Heart Attack/AMI: Yes Hx Diabetes: Yes Hx Arthritis: No Hx Asthma: No Hx COPD: No Hx HIV: No Additional medical history: history of black stools - Surgical History Past Surgical History?: Yes Additional Surgical History: stomach, cardiac stents - Social History Smoking Status: Current Every Day Smoker Substance Use Type: Alcohol - Medications Home Medications: Home Medications Medication Instructions Recorded Confirmed Last Taken Type Insulin NPH/Regular [NovoLIN 70/30] 10 unit SUB-Q BIDDIAB #1 vial 06/08/16 Unknown Rx Pantoprazole [Protonix] 40 mg PO BID #60 tablet 06/08/16 Unknown Rx cephALEXin [Keflex] 500 mg PO Q12HR #14 cap 06/08/16 Unknown Rx HYDROcodone/APAP 5-325 [[place] 1 each PO Q6HR PRN #8 tablet 10/24/16 Unknown Rx 5/325] Naproxen [Naprosyn TAB] 375 mg PO BID PRN #20 tablet 10/24/16 Unknown Rx Sulfamethoxazole/Trimethoprim 1 each PO BID #14 tablet 10/24/16 Unknown Rx [Bactrim DS TAB] cephALEXin [Keflex] 500 mg PO Q6HR #28 capsule 10/24/16 Unknown Rx Ibuprofen [Motrin 800 MG tab] 800 mg PO Q8HR PRN #20 tablet 08/15/18 Unknown Rx ED Physical Exam - General Limitations: No Limitations General appearance: alert, in no apparent distress - Head Head exam: Present: atraumatic, normocephalic - Eye Eye exam: Present: PERRL, EOMI, other (appears to have cataracts in the bilateral eyes). Absent: scleral icterus, conjunctival injection, nystagmus, periorbital swelling, periorbital tenderness - ENT ENT exam: Present: mucous membranes moist - Extremities Exam Extremities exam: Present: other (mild TTP over the left medial knee, small amount of edema to the left knee, no obvious deformity, no joint laxity, FROM of the left knee without difficulty, 2+ dp pulse, sensation intact) - Neurological Exam Neurological exam: Present: alert, oriented X3, CN II-XII intact, normal gait. Absent: motor sensory deficit - Psychiatric Psychiatric exam: Present: normal affect, normal mood - Skin Skin exam: Present: warm, dry, intact ED Course Vital Signs 08/15/18 11:03 Temperature 97.8 F Pulse Rate 89 Respiratory 16 Rate Blood Pressure 127/74 O2 Sat by Pulse 100 Oximetry ED Medical Decision Making - Radiology Data Radiology results: report reviewed Fluoro Time In Minutes: LEFT KNEE, 3 VIEWS INDICATION: left knee pain/edema. COMPARISON: None. FINDINGS: A large joint effusion is identified on the lateral image. There is normal bone mineralization. No evidence for fracture, bone lesion or significant joint path ology. IMPRESSION: Large joint effusion. No acute bony injury is identified. If internal derangement is suspected, MRI left knee could be obtained. Signer Name: Marcel Perla Carson Jr, MD Signed: 08/15/2018 11:27 AM Workstation Name: [id number] Transcribed By: REF Dictated By: DEBBIE CORDOVA MD Electronically Authenticated By: DEBBIE CORDOVA MD Signed Date/Time: 08/15/18 1127 - Medical Decision Making Patient is a 53-year-old male who presents to emergency room complaining of left knee pain and swelling that began about 6-7 days ago. He denies any fall or injury. He does not report any previous injury. He states that approximately 5 days ago he also began to have a "cloud over his vision" in his right eye. He denies any numbness, weakness, or BIANCHI. He has a PMHx of DM. He states he has not seen an eye doctor in 10 years. on exam: appears to have cataracts in the bilateral eyes, PERRL, EOMI, mild TTP over the left medial knee, small amount of edema to the left knee, no obvious deformity, no joint laxity, FROM of the left knee without difficulty, 2+ dp pulse, sensation intact. VA bilateral 20/50, left 20/50, right 20/40. discussed with pt that it is very important he follow up with an loader in the next 24 hours. discussed with pt that as a diabetic he should be having yearly eye exams. XR of the left knee: Large joint effusion. No acute bony injury is identified. pt still has FROM of the knee and mobility. will have pt follow up with Dr. Winkler, orthopedic in the next 2-3 days. discussed RICE therapy and pt given an erika wrap to use as needed on the knee. pt given prescription for anti-inflammatory. discussed with pt to please follow up with an loader in the next 24 hours. Please follow-up with Dr. Winkler, orthopedic in the next 2-3 days. May use ice, rest, compression, elevation. Take medication as prescribed as needed. Return to the emergency room for any new or worsening symptoms. - Differential Diagnosis strain, sprain, fx, dislocation, retinal dettachement, glaucoma, cataracts Critical care attestation.: If time is entered above; I have spent that time in minutes in the direct care of this critically ill patient, excluding procedure time. ED Disposition Clinical Impression: Effusion, left knee, Blurring, right eye Left knee pain Qualifiers: Chronicity: acute Qualified Code(s): M25.562 - Pain in left knee Disposition: TO HOME OR SELFCARE Is pt being admited?: No Does the pt Need Aspirin: No Condition: Stable Instructions: Cataracts (ED), Knee Effusion (ED), Blurred Vision (ED) Additional Instructions: Please follow up with an loader in the next 24 hours. Please follow-up with Dr. Winkler, orthopedic in the next 2-3 days. May use ice, rest, compression, elevation. Take medication as prescribed as needed. Return to the emergency room for any new or worsening symptoms. Prescriptions: Ibuprofen [Motrin 800 MG tab] 800 mg PO Q8HR PRN #20 tablet PRN Reason: Pain, Moderate (4-6) Referrals: TALA BATISTA MD [Primary Care Provider] - 2-3 Days DEBBIE WINKLER MD [Staff Physician] - 2-3 Days NADJA KUNZ MD [Staff Physician] - [facility] Time of Disposition: 13:14 Print Language: CITIZEN OF [place]
--- NOTE | 2018-08-15 12:32 | XRay Report ---
LEFT KNEE, 3 VIEWS INDICATION: left knee pain/edema. COMPARISON: None. FINDINGS: A large joint effusion is identified on the lateral image. There is normal bone mineralizat ion. No evidence for fracture, bone lesion or significant joint pathology. IMPRESSION: Large joint effusion. No acute bony injury is identified. If internal derangement is mcgowan spected, MRI left knee could be obtained. Signer Name: Marcel Carson Jr, MD Signed: 08/15/2018 11:27 AM Workstation Name: [id number]
== END 2018-08-15 16:45 | disposition home or self-care (01) ==
LOC: ED 10:34
DX: M25.462 Effusion, left knee (principal); H53.8 Other visual disturbances; H57.11 Ocular pain, right eye; E11.9 Type 2 diabetes mellitus without complications; I10 Essential (primary) hypertension; F17.200 Nicotine dependence, unspecified, uncomplicated; Z79.4 Long term (current) use of insulin; Z79.1 Long term (current) use of non-steroidal anti-inflammatories (NSAID); Z79.899 Other long term (current) drug therapy
CPT/HCPCS: 99283

== ENCOUNTER 2019-05-14 23:16 | Emergency (ER) | payer SELFPAY ==
--- NOTE | 2019-05-15 00:54 | Emergency Department Report ---
ED General Adult HPI - General Chief complaint: Eye Problems Stated complaint: LT EYE BLURRY Time Seen by Provider: 05/15/19 00:33 Source: patient, RN notes reviewed, old records reviewed Mode of arrival: Ambulatory Limitations: No Limitations - History of Present Illness Initial comments: The patient is a pleasant 53-year-old gentleman, not known to myself previously, with a history of CAD, GI ulcer, hypertension, diabetes and noncompliance. He reports being out of his medications for about 2 months. He presents to the ER with a primary complaint of painless left-sided blurry vision. This started earlier on today. He describes it as blurry vision, and indicates that when he looks straight ahead, he has difficulty seeing out of the left eye. However, the left-sided temporal and nasal peripheral aspects of his vision are unchanged. The right eye is unaffected. There is no direct or consensual photophobia. There is no complaint of neck pain, chest pain, abdominal pain, shortness of breath, ataxia, focal extremity weakness and/or numbness. He also describes a left-sided occipital headache, not sudden or thunderclap in nature, not maximal in intensity, and not the worst headache of his life. He gets his headache frequently. There is no neck pain or neck stiffness. No fevers or chills. No sore throat, and no positive exposures to coronavirus that he is aware of. -: hour(s) Location: eyes (Left) Severity scale (0 -10): 0 Consistency: constant Improves with: none Worsens with: none Associated Symptoms: headaches - Related Data Previous Rx's Medication Instructions Recorded Last Taken Type Amlodipine Besylate [Norvasc] 5 mg PO QDAY #30 tablet 05/15/19 Unknown Rx Insulin NPH/Regular [NovoLIN 70/30] 10 unit SUB-Q BIDDIAB #1 vial 05/15/19 Unknown Rx Pantoprazole [Protonix TAB] 40 mg PO BID #60 tablet 05/15/19 Unknown Rx Allergies Allergy/AdvReac Type Severity Reaction Status Date / Time No Known Allergies Allergy Unverified 02/27/13 00:56 ED Review of Systems ROS: Stated complaint: LT EYE BLURRY Other details as noted in HPI Constitutional: denies: fever Eyes: vision change. denies: eye pain, eye discharge ENT: as per HPI. denies: throat pain, congestion Respiratory: denies: cough Cardiovascular: denies: chest pain, syncope Gastrointestinal: denies: abdominal pain, nausea, vomiting Genitourinary: as per HPI Musculoskeletal: as per HPI Skin: as per HPI Neurological: as per HPI. denies: weakness, numbness, paresthesias, confusion, abnormal gait, vertigo Psychiatric: as per HPI Hematological/Lymphatic: as per HPI. denies: easy bleeding ED Past Medical Hx - Past Medical History Previous Medical History?: Yes Hx Hypertension: Yes Hx Heart Attack/AMI: Yes Hx Diabetes: Yes Hx Arthritis: No Hx Asthma: No Hx COPD: No Hx HIV: No Additional medical history: history of black stools - Surgical History Past Surgical History?: Yes Additional Surgical History: stomach, cardiac stents - Social History Smoking Status: Current Every Day Smoker - Medications Home Medications: Home Medications Medication Instructions Recorded Confirmed Last Taken Type Amlodipine Besylate [Norvasc] 5 mg PO QDAY #30 tablet 05/15/19 Unknown Rx Insulin NPH/Regular [NovoLIN 70/30] 10 unit SUB-Q BIDDIAB #1 vial 05/15/19 Unknown Rx Pantoprazole [Protonix TAB] 40 mg PO BID #60 tablet 05/15/19 Unknown Rx ED Physical Exam - General Limitations: No Limitations General appearance: alert, in no apparent distress - Head Head exam: Present: atraumatic, normocephalic - Eye Eye exam: Present: normal appearance, PERRL, EOMI, other (Right-sided visual acuity is intact to finger counting color perception and reading at a close distance. In the bilateral eyes, there is no direct or consensual photophobia. Left-sided visual acuity is grossly intact to color perception, and he is able to finger count in the temporal and nasal nunez. Central vision is blurry.). Absent: scleral icterus, conjunctival injection, nystagmus, periorbital swelling, periorbital tenderness - ENT ENT exam: Present: normal exam, normal orophraynx, mucous membranes moist, normal external ear exam - Neck Neck exam: Present: normal inspection, full ROM. Absent: tenderness, meningismus - Respiratory Respiratory exam: Present: normal lung sounds bilaterally. Absent: respiratory distress - Cardiovascular Cardiovascular Exam: Present: regular rate, normal rhythm, normal heart sounds. Absent: bradycardia, tachycardia, irregular rhythm, systolic murmur, diastolic murmur, rubs, gallop - GI/Abdominal GI/Abdominal exam: Present: soft. Absent: distended, tenderness, guarding, rebound, rigid, pulsatile mass - Rectal Rectal exam: Present: deferred - Extremities Exam Extremities exam: Present: normal inspection, full ROM, other (2+ pulses noted in the bilateral upper and lower extremities. There is no palpable cord. negative Homans sign. Muscular compartments are soft. The pelvis is stable.). Absent: pedal edema, calf tenderness - Back Exam Back exam: Present: normal inspection, full ROM. Absent: tenderness, CVA tenderness (R), CVA tenderness (L), paraspinal tenderness, vertebral tenderness - Neurological Exam Neurological exam: Present: alert, oriented X3, normal gait, other (There is no facial droop. The tongue is midline. Extraocular movements are intact bilaterally. There is 5 out of 5 strength in bilateral upper and lower extremities. Sensation is intact to light touch bilateral upper and lower extremities. There is no past-pointing. There is no pronator drift. There is normal [id number]-[id number]. There is a normal gait.). Absent: motor sensory deficit - Psychiatric Psychiatric exam: Present: normal affect, normal mood - Skin Skin exam: Present: warm, dry, intact, normal color. Absent: rash ED Course Vital Signs 05/15/19 05/15/19 05/15/19 00:02 00:47 00:50 Temperature 98.9 F Pulse Rate 76 74 Respiratory 18 20 20 Rate Blood Pressure 191/101 Blood Pressure 192/103 [Left] O2 Sat by Pulse 100 100 100 Oximetry ED Medical Decision Making - Lab Data Vital Signs 05/15/19 05/15/19 05/15/19 00:02 00:47 00:50 Temperature 98.9 F Pulse Rate 76 74 Respiratory 18 20 20 Rate Blood Pressure 191/101 Blood Pressure 192/103 [Left] O2 Sat by Pulse 100 100 100 Oximetry - Medical Decision Making Differential diagnosis, including but not limited to: Migraine headache, tension headache, cluster headache, vitreous hemorrhage, retinal detachment, posterior vitreous detachment, medication noncompliance, chronic hypertension Assessment and plan: 53-year-old gentleman with a primary complaint of painless left-sided visual loss. He is afebrile with reassuring vital signs with the exception of chronic hypertension. Please reference the [employer] clinical policy on asymptomatic hypertension Bedside ocular ultrasound was performed by myself, and demonstrates hyperechoic material floating in the posterior chamber, attached to the posterior aspect of the left eye, suspicious for hemorrhage versus partial retinal detachment. Extraocular movements are intact, there is no direct or consensual photophobia, and there is no red eye, pain or tenderness. Contacted packaging supervisor personnel security assistant for [facility], Dr. Lazar We discussed the patient's history, physical, ocular examination and ocular ultr asound. It is currently Tuesday now. He indicates he can see the patient as a follow-up first thing . Patient will be encouraged to follow-up with the aforementioned packaging supervisor on . We will hold NSAIDs and aspirin at this time. Patient states he has been out of his medications for approximately 2 months. We will refill his medications. In terms of the patient's headache, GCS 15, walking with a steady gait, clinically sober, unremarkable neurologic examination, he states this is a chronic and frequent headache. We will treat his headache supportively and symptomatically. Critical care attestation.: If time is entered above; I have spent that time in minutes in the direct care of this critically ill patient, excluding procedure time. ED Disposition Clinical Impression: Blurry vision, left eye, Medication refill, Elevated blood pressure reading Disposition: - TO HOME OR SELFCARE Is pt being admited?: No Does the pt Need Aspirin: No Condition: Stable Additional Instructions: Take the prescribed medications as directed. Do not take Motrin, ibuprofen, Naprosyn, Aleve. Please make certain to take the blood pressure medication as directed. Long-term complications of hypertension and elevated blood pressure include stroke, heart attack, disability, paralysis, loss of quality of life. We have discussed her case with packaging supervisor, Dr. Dev Lazar, and he would like to see you in the office, this , at 9:00. The patient should follow-up at the packaging supervisor office May 17, 2019, at 9:00 in the morning Call: Email: [email or web address] Visit: [address] [place], [address] Hours: Tuesday to Tuesday 8:00 a.m. to 5:00 p.m. It is very important to follow-up with an outpatient packaging supervisor for definitive evaluation of the left eye. Not following up as recommended may result in permanent loss of vision to the eye, which may lead to permanent blindness, disability, loss of quality of life. Patient may also follow-up with the other outpatient packaging supervisor listed in this paperwork, if he so desires. The patient should follow-up with an outpatient primary care doctor within the next 2 to 3 weeks for his chronic medical conditions. Please return to the emergency room right away with new, worsened or different symptoms, or symptoms not present on the initial emergency room evaluation. Referrals: NADJA KUNZ MD [Staff Physician] - 3-5 Days [facility] [Provider Group] - 3-5 Days [facility] [Provider Group] - 3-5 Days [facility] [Provider Group] - 3-5 Days
[2019-05-15] MEDS ORDERED: amLODIPine 5 MG TAB PO ONE (00:55)
[2019-05-15] MEDS ORDERED: ACETAMINOPHEN 500 MG TAB PO ONE (00:55)
[2019-05-15 01:42] VITALS: BP 177/98
== END 2019-05-15 01:45 | disposition home or self-care (01) ==
LOC: ED 23:16
DX: H53.8 Other visual disturbances (principal); I10 Essential (primary) hypertension; I25.2 Old myocardial infarction; E11.9 Type 2 diabetes mellitus without complications; F17.200 Nicotine dependence, unspecified, uncomplicated
CPT/HCPCS: 82962

== ENCOUNTER 2020-10-28 11:55 | Emergency (ER) | payer OTHER ==
[2020-10-28] MEDS ORDERED: SODIUM CHLORIDE 0.9% 1000 ML 1,000 ML IV ONE (14:33)
[2020-10-28] MEDS ORDERED: KETOROLAC 30 MG/1 ML INJ IV ONE (14:33)
--- NOTE | 2020-10-28 14:34 | Emergency Department Report ---
<GURUMIKE - Last Filed: 10/28/20 22:14> ED Abdominal Pain HPI - General Chief Complaint: Back Pain/Injury Stated Complaint: RT SIDE BACK PAIN X 4 DAYS Time Seen by Provider: 10/28/20 14:09 - Related Data Previous Rx's Medication Instructions Recorded Last Taken Type Amlodipine Besylate [Norvasc] 5 mg PO QDAY #30 tablet 05/15/19 Unknown Rx Insulin NPH/Regular [NovoLIN 70/30] 10 unit SUB-Q BIDDIAB #1 vial 05/15/19 Unknown Rx Pantoprazole [Protonix TAB] 40 mg PO BID #60 tablet 05/15/19 Unknown Rx DOXYCYCLINE Hyclate [Vibramycin 100 mg PO Q12HR #20 capsule 10/28/20 Unknown Rx CAP] Lactulose [Cephulac] 30 gm PO Q6HR #450 ml 10/28/20 Unknown Rx Allergies Allergy/AdvReac Type Severity Reaction Status Date / Time No Known Allergies Allergy Unverified 02/27/13 00:56 ED Past Medical Hx - Medications Home Medications: Home Medications Medication Instructions Recorded Confirmed Last Taken Type Amlodipine Besylate [Norvasc] 5 mg PO QDAY #30 tablet 05/15/19 Unknown Rx Insulin NPH/Regular [NovoLIN 70/30] 10 unit SUB-Q BIDDIAB #1 vial 05/15/19 Unknown Rx Pantoprazole [Protonix TAB] 40 mg PO BID #60 tablet 05/15/19 Unknown Rx DOXYCYCLINE Hyclate [Vibramycin 100 mg PO Q12HR #20 capsule 10/28/20 Unknown Rx CAP] Lactulose [Cephulac] 30 gm PO Q6HR #450 ml 10/28/20 Unknown Rx ED Medical Decision Making - Lab Data Result diagrams: 10/28/20 19:10 10/28/20 19:10 - Medical Decision Making [facility] [address] [place] [address] Cat Scan Report Signed Patient: RUTHIE MATT MR#: [id number] : 1965 Acct:[id number] Age/Sex: 55 / M ADM Date: 10/28/20 Loc: ED Attending Dr: Ordering Physician: LEXIE IZQUIERDO Date of Service: 10/28/20 Procedure(s): CT abdomen pelvis w con Accession Number(s): [id number] cc: LEXIE IZQUIERDO CT ABDOMEN AND PELVIS WITH CONTRAST INDICATION / CLINICAL INFORMATION: RLQ and flank pain. TECHNIQUE: Axial CT images were obtained through the abdomen and pelvis after 100 cc Omnipaque [address] scans at this location are performed using CT dose reduction for ALARA by means of automated exposure control. COMPARISON: None available. FINDINGS: LOWER CHEST: Mild bibasilar groundglass opacities favor atelectasis. LIVER: No significant abnormality. GALLBLADDER: No significant abnormality. BILE DUCTS: No significant abnormality. PANCREAS: No significant abnormality. SPLEEN: No significant abnormality. ADRENALS: No significant abnormality. RIGHT KIDNEY / URETER: No significant abnormality. LEFT KIDNEY / URETER: No significant abnormality. STOMACH / SMALL BOWEL: Tiny hiatal hernia. The small bowel is nondilated. COLON: Moderate colonic stool burden. APPENDIX: No significant abnormality. PERITONEUM: No free fluid. No free air. No fluid collection. LYMPH NODES: No significant adenopathy. AORTA / ARTERIES: Mild atherosclerotic calcification without acute abnormality. IVC / VEINS: No significant abnormality. URINARY BLADDER: No significant abnormality. REPRODUCTIVE ORGANS: No significant abnormality. ADDITIONAL FINDINGS: Small fat containing umbilical hernia.. SKELETAL SYSTEM: Degenerative changes of the spine. No aggressive osseous lesion. IMPRESSION: 1. No CT evidence of acute abnormality. No hydronephrosis or radiopaque urinary tract calculi. 2. Moderate colonic stool burden, which can be seen with constipation in the proper clinical setting. 3. Incidental findings as above. Signer Name: Marcello Lundberg MD Signed: 10/28/2020 9:26 PM Workstation Name: [id number] Transcribed By: DB Dictated By: MARCELLO LUNDBERG MD Electronically Authenticated By: MARCELLO LUNDBERG MD Signed Date/Time: 10/28/202125 DD/ 19 TD/TT: Print Cancel ED Disposition Clinical Impression: Constipation, Abdominal pain, Dysuria Disposition: 01 HOME / SELF CARE / HOMELESS Is pt being admited?: No Does the pt Need Aspirin: No Condition: Stable Instructions: Constipation, Adult, Dysuria Additional Instructions: You have been evaluated emergency department today for abdominal pain. Your evaluation did not show evidence of any medical conditions requiring emergent in tervention at this time. Your lipase was it was elevated but not to a significant degree significant pancreatitis does not appear to be present at this time please drink plenty of fluids. CT scan was consistent with constipation which may have been the culprit for your abdominal discomfort you also prescribed antibiotics to alleviate your dysuria Please schedule an appointment with your primary care physician. Return to emergency department if you experience worsening uncontrolled pain, fe vers of 100.4 or greater, recurrent vomiting, inability to tolerate food or fluids by mouth, bloody stools or vomit, black tarry stools, or any other concerning symptoms. Prescriptions: Lactulose [Cephulac] 30 gm PO Q6HR #450 ml DOXYCYCLINE Hyclate [Vibramycin CAP] 100 mg PO Q12HR #20 capsule Referrals: JOHNY STALLINGS MD [Primary Care Provider] - 3-5 Days <ROSA BURR - Last Filed: 10/29/20 14:14> ED Abdominal Pain HPI - General Source: patient Mode of arrival: Ambulatory Limitations: No Limitations - History of Present Illness Initial Comments: This is a 55-year-old male who presents to the emergency room with right flank pain radiating to right scrotum for 4 days. Patient also reports urinary frequency. Reports increased water intake because he thought it was a UTI. Patient also states he feel constipated. Complaint: flank pain (right) Onset/Timin -: days(s) Location: RUQ Radiation: R flank Migration to: no migration Severity scale (0 -10): 8 Quality: sharp Consistency: intermittent Associated Symptoms: denies other symptoms Treatments Prior to Arrival: NSAIDs ED Review of Systems ROS: Stated complaint: RT SIDE BACK PAIN X 4 DAYS Other details as noted in HPI Constitutional: denies: chills, fever Respiratory: denies: cough, shortness of breath, wheezing Cardiovascular: denies: chest pain, palpitations Gastrointestinal: abdominal pain (Right upper quadrant pain radiating to right flank). denies: nausea, diarrhea Genitourinary: frequency. denies: urgency, dysuria Musculoskeletal: back pain. denies: joint swelling, arthralgia Neurological: denies: headache, weakness, paresthesias Psychiatric: denies: anxiety, depression ED Past Medical Hx - Past Medical History Hx Hypertension: Yes Hx Heart Attack/AMI: Yes Hx Diabetes: Yes Hx Arthritis: No Hx Asthma: No Hx COPD: No Hx HIV: No Additional medical history: history of black stools - Surgical History Additional Surgical History: stomach, cardiac stents - Social History Smoking Status: Current Every Day Smoker ED Physical Exam - General Limitations: No Limitations - Respiratory Respiratory exam: Present: normal lung sounds bilaterally. Absent: respiratory distress - Cardiovascular Cardiovascular Exam: Present: regular rate, normal rhythm. Absent: systolic murmur, diastolic murmur, rubs, gallop - GI/Abdominal GI/Abdominal exam: Present: soft, tenderness (Right upper quadrant), normal bowel sounds. Absent: guarding, rebound, organomegaly - exam: Absent: testicular tenderness, urethral discharge, scrotal swelling, vertical testicular lie, circumcision (Uncircumcised) External exam: Present: normal external exam - Extremities Exam Extremities exam: Present: normal inspection - Back Exam Back exam: Present: full ROM, CVA tenderness (R). Absent: CVA tenderness (L), muscle spasm, paraspinal tenderness, vertebral tenderness - Neurological Exam Neurological exam: Present: alert, oriented X3, normal gait - Psychiatric Psychiatric exam: Present: normal affect, normal mood - Skin Skin exam: Present: warm, dry, intact, normal color. Absent: rash ED Course Vital Signs 10/28/20 10/28/20 13:55 19:51 Temperature 98 F Pulse Rate 78 64 Respiratory 16 16 Rate Blood Pressure 175/96 [Left] Blood Pressure 167/103 [Right] O2 Sat by Pulse 99 99 Oximetry ED Medical Decision Making - Lab Data Result diagrams: 10/28/20 19:10 10/28/20 19:10 Vital Signs 10/28/20 10/28/20 13:55 19:51 Temperature 98 F Pulse Rate 78 64 Respiratory 16 16 Rate Blood Pressure 175/96 [Left] Blood Pressure 167/103 [Right] O2 Sat by Pulse 99 99 Oximetry Lab Results 10/28/20 10/28/20 Range/Units 19:10 19:10 WBC 5.8 (4.5-11.0) K/mm3 RBC 4.22 (3.65-5.03) M/mm3 Hgb 13.4 (11.8-15.2) gm/dl Hct 40.1 (35.5-45.6) % MCV 95 H (84-94) fl MCH 32 (28-32) pg MCHC 34 (32-34) % RDW 14.0 (13.2-15.2) % Plt Count 200 (140-440) K/mm3 Lymph % (Auto) 34.1 (13.4-35.0) % Long % (Auto) 7.7 H (0.0-7.3) % Eos % (Auto) 2.8 (0.0-4.3) % Baso % (Auto) 0.7 (0.0-1.8) % Lymph # (Auto) 2.0 (1.2-5.4) K/mm3 Long # (Auto) 0.4 (0.0-0.8) K/mm3 Eos # (Auto) 0.2 (0.0-0.4) K/mm3 Baso # (Auto) 0.0 (0.0-0.1) K/mm3 Seg Neutrophils % 54.7 (40.0-70.0) % Seg Neutrophils # 3.2 (1.8-7.7) K/mm3 Sodium 136 L (137-145) mmol/L Potassium 4.9 (3.6-5.0) mmol/L Chloride 104.2 (98-107) mmol/L Carbon Dioxide 25 (22-30) mmol/L Anion Gap 12 mmol/L BUN 20 (9-20) mg/dL Creatinine 0.9 (0.8-1.3) mg/dL Estimated GFR > 60 ml/min BUN/Creatinine Ratio 22 % Glucose 149 H (75-100) mg/dL Calcium 8.5 (8.4-10.2) mg/dL - Radiology Data Radiology results: report reviewed ULTRASOUND SCROTUM INDICATION / CLINICAL INFORMATION: right testicular pain. COMPARISON: None available. FINDINGS -- RIGHT: TESTIS: Size = 3.7 x 2.3 x 3 cm. - Appearance: No significant abnormality. - Cyst / Mass: None. - Color Doppler Flow: No significant abnormality. EPIDIDYMIS: No significant abnormality. HYDROCELE: None. VARICOCELE: None demonstrated. FINDINGS -- LEFT: TESTIS: Size = 3.5 x 1.5 x 2.9 cm. - Appearance: No significant abnormality. - Cyst / Mass: None. - Color Doppler Flow: No significant abnormality. EPIDIDYMIS: No significant abnormality. HYDROCELE: Small. VARICOCELE: Small. ADDITIONAL FINDINGS: None. IMPRESSION: 1. Testicles unremarkable. 2. Small left varicocele and hydrocele. Signer Name: Nestor Kitchen MD Signed: 10/28/2020 3:25 PM Workstation Name: [id number] - Medical Decision Making This is a 55-year-old male who presents with right upper quadrant pain radiating to right flank and right testicle for 4 days. Labs, testicular ultrasound, and CT of abdomen ordered and pending. Chart signed to DOMO Torres. Critical care attestation.: If time is entered above; I have spent that time in minutes in the direct care of this critically ill patient, excluding procedure time.
--- NOTE | 2020-10-28 15:29 | Ultrasound Report ---
ULTRASOUND SCROTUM INDICATION / CLINICAL INFORMATION: right testicular pain. COMPARISON: None available. FINDINGS -- RIGHT: TESTIS: Size = 3.7 x 2.3 x 3 cm. - Appearance: No significant abnormality. - Cyst / Mass: None. - Color Doppler Flow: No significant abnormality. EPIDIDYMIS: No significant abnormality. HYDROCELE: None. VARICOCELE: None demonstrated. FINDINGS -- LEFT: TESTIS: Size = 3.5 x 1.5 x 2.9 cm. - Appearance: No significant abnormality. - Cyst / Mass: None. - Color Doppler Flow: No significant abnormality. EPIDIDYMIS: No significant abnormality. HYDROCELE: Small. VARICOCELE: Small. ADDITIONAL FINDINGS: None. IMPRESSION: 1. Testicles unremarkable. 2. Small left varicocele and hydrocele. Signer Name: Nestor Kitchen MD Signed: 10/28/2020 3:25 PM Workstation Name: [id number]
[2020-10-28 19:30] LABS: Basophils % (Auto) 0.7 % (0.0-1.8); Eosinophils # (Auto) 0.2 K/mm3 (0.0-0.4); Eosinophils % (Auto) 2.8 % (0.0-4.3); Hematocrit 40.1 % (35.5-45.6); Hemoglobin 13.4 gm/dl (11.8-15.2); Lymphocytes % (Auto) 34.1 % (13.4-35.0); Mean Corpuscular HGB Conc 34 % (32-34); Mean Corpuscular Volume 95 fl (84-94); Monocytes # (Auto) 0.4 K/mm3 (0.0-0.8); Monocytes % (Auto) 7.7 % (0.0-7.3); Platelet Count 200 K/mm3 (140-440); Red Blood Count 4.22 M/mm3 (3.65-5.03)
[2020-10-28 19:43] LABS: BUN/Creatinine Ratio 22; Blood Urea Nitrogen 20 mg/dL (9-20); Calcium 8.5 mg/dL (8.4-10.2); Hemolysis Index 6
[2020-10-28 19:52] VITALS: BP 175/96
--- NOTE | 2020-10-28 21:31 | Cat Scan Report ---
CT ABDOMEN AND PELVIS WITH CONTRAST INDICATION / CLINICAL INFORMATION: RLQ and flank pain. TECHNIQUE: Axial CT images were obtained through the abdomen and pelvis after 100 cc Omnipaque [address] scans at this location are performed using CT dose reduction for ALARA by means of automated exposure control. COMPARISON: None available. FINDINGS: LOWER CHEST: Mild bibasilar groundglass opacities favor atelectasis. LIVER: No significant abnormality. GALLBLADDER: No significant abnormality. BILE DUCTS: No significant abnormality. PANCREAS: No significant abnormality. SPLEEN: No significant abnormality. ADRENALS: No significant abnormality. RIGHT KIDNEY / URETER: No significant abnormality. LEFT KIDNEY / URETER: No significant abnormality. STOMACH / SMALL BOWEL: Tiny hiatal hernia. The small bowel is nondilated. COLON: Moderate colonic stool burden. APPENDIX: No significant abnormality. PERITONEUM: No free fluid. No free air. No fluid collection. LYMPH NODES: No significant adenopathy. AORTA / ARTERIES: Mild atherosclerotic calcification without acute abnormality. IVC / VEINS: No significant abnormality. URINARY BLADDER: No significant abnormality. REPRODUCTIVE ORGANS: No significant abnormality. ADDITIONAL FINDINGS: Small fat containing umbilical hernia.. SKELETAL SYSTEM: Degenerative changes of the spine. No aggressive osseous lesion. IMPRESSION: 1. No CT evidence of acute abnormality. No hydronephrosis or radiopaque urinary tract calculi. 2. Moderate colonic stool burden, which can be seen with constipation in the proper clinical setting. 3. Incidental findings as above. Signer Name: Marcello Lundberg MD Signed: 10/28/2020 9:26 PM Workstation Name: [id number]
== END 2020-10-28 22:22 | disposition home or self-care (01) ==
LOC: ED 11:55
DX: K59.00 Constipation, unspecified (principal); R30.0 Dysuria; R10.9 Unspecified abdominal pain
CPT/HCPCS: 36415; 74177; 80048; 85025; 93975; 96361; 96374; 99284; J1885; J7030; Q9967

== ENCOUNTER 2021-08-05 09:07 | Emergency (ER) | payer OTHER ==
[2021-08-05 14:02] LABS: Basophils % (Auto) 0.5 % (0.0-1.8); Eosinophils # (Auto) 0.2 K/mm3 (0.0-0.4); Eosinophils % (Auto) 2.8 % (0.0-4.3); Hemoglobin 13.9 gm/dl (11.8-15.2); Lymphocytes # (Auto) 2.2 K/mm3 (1.2-5.4); Lymphocytes % (Auto) 35.8 % (13.4-35.0); Mean Corpuscular HGB Conc 34 % (32-34); Mean Corpuscular Volume 94 fl (84-94); Monocytes # (Auto) 0.5 K/mm3 (0.0-0.8); Monocytes % (Auto) 7.7 % (0.0-7.3); Platelet Count 201 K/mm3 (140-440); Red Blood Count 4.34 M/mm3 (3.65-5.03); Red Cell Distribution Width 14.4 % (13.2-15.2)
[2021-08-05 14:13] LABS: Alanine Aminotransferase 30 units/L (7-56); Albumin 4.2 g/dL (3.9-5); BUN/Creatinine Ratio 13; Blood Urea Nitrogen 17 mg/dL (9-20); Calcium 9.4 mg/dL (8.4-10.2); Hemolysis Index 6
--- NOTE | 2021-08-05 14:53 | Emergency Department Report ---
ED Back Pain/Injury HPI - General Chief Complaint: Back Pain/Injury Stated Complaint: BACK PAIN Source: patient Limitations: No Limitations - History of Present Illness Initial Comments: Patient is a 55-year-old -[place] male with a history of hypertension, [id number] diabetes and coronary artery disease s/p AK and PTCA stents presents to the ED with complaint of acute onset persistent nontraumatic left-sided mid posterior thoracic and low back pain for the last 1 week, worse in the last 2 days. Patient states that the pain has been constant and persistent and worse with any movement or lifting or any physical activity. Patient states that he initially woke up with the pain but ignored it but in the last few days the pain has been persistent. Patient denies dizziness, syncope, fall, heavy lifting, chest pain or shortness of breath, neck pain, nausea and vomiting, diaphoresis, headache, numbness and tingling or weakness of upper and lower extremities bilaterally, urinary frequency and urgency, hematuria, testicular pain, dysuria, cough or fever and chills. MD Complaint: back pain (Left-sided mid posterior thoracic and lumbosacral pain) -: week(s) (2) Similar Symptoms Previously: No Place: home Radiation: none Severity: severe Severity scale (0 -10): 8 Quality: sharp, aching Consistency: constant Improves With: none Worsens With: movement, walking Context: turning/twisting Associated Symptoms: denies other symptoms. denies: confusion, chest pain, numbness, diaphoresis, incontinence, fever/chills, headaches, nausea/vomiting, seizure, shortness of breath, syncope - Related Data Previous Rx's Medication Instructions Recorded Last Taken Type Amlodipine Besylate [Norvasc] 5 mg PO QDAY #30 tablet 05/15/19 Unknown Rx Insulin NPH/Regular [NovoLIN 70/30] 10 unit SUB-Q BIDDIAB #1 vial 05/15/19 Unknown Rx Pantoprazole [Protonix TAB] 40 mg PO BID #60 tablet 05/15/19 Unknown Rx DOXYCYCLINE Hyclate [Vibramycin 100 mg PO Q12HR #20 capsule 10/28/20 Unknown Rx CAP] Lactulose [Cephulac] 30 gm PO Q6HR #450 ml 10/28/20 Unknown Rx Naproxen 500 mg PO Q12H PRN #24 tab 08/05/21 Unknown Rx methOCARBAMOL [Robaxin TAB] 750 mg PO Q8H PRN #30 tab 08/05/21 Unknown Rx traMADoL [Ultram] 50 mg PO Q6HR PRN #12 tablet 08/05/21 Unknown Rx Allergies Allergy/AdvReac Type Severity Reaction Status Date / Time No Known Allergies Allergy Verified 08/05/21 10:26 ED Review of Systems ROS: Stated complaint: BACK PAIN Other details as noted in HPI Constitutional: denies: chills, fever Eyes: denies: eye pain, eye discharge, vision change ENT: denies: ear pain, throat pain Respiratory: denies: cough, shortness of breath, wheezing Cardiovascular: denies: chest pain, palpitations Endocrine: no symptoms reported Gastrointestinal: denies: abdominal pain, nausea, vomiting, diarrhea Genitourinary: denies: urgency, dysuria Musculoskeletal: back pain (Mid posterior thoracic and low back pain), myalgia. denies: joint swelling, arthralgia Skin: denies: rash, lesions Neurological: denies: headache, weakness, paresthesias Psychiatric: denies: anxiety, depression Hematological/Lymphatic: denies: easy bleeding, easy bruising ED Past Medical Hx - Past Medical History Hx Hypertension: Yes Hx Heart Attack/AMI: Yes Hx Diabetes: Yes Hx Arthritis: No Hx Asthma: No Hx COPD: No Hx HIV: No Additional medical history: history of black stools - Surgical History Additional Surgical History: stomach, cardiac stents - Social History Smoking Status: Never Smoker - Medications Home Medications: Home Medications Medication Instructions Recorded Confirmed Last Taken Type Amlodipine Besylate [Norvasc] 5 mg PO QDAY #30 tablet 05/15/19 Unknown Rx Insulin NPH/Regular [NovoLIN 70/30] 10 unit SUB-Q BIDDIAB #1 vial 05/15/19 Un known Rx Pantoprazole [Protonix TAB] 40 mg PO BID #60 tablet 05/15/19 Unknown Rx DOXYCYCLINE Hyclate [Vibramycin 100 mg PO Q12HR #20 capsule 10/28/20 Unknown Rx CAP] Lactulose [Cephulac] 30 gm PO Q6HR #450 ml 10/28/20 Unknown Rx Naproxen 500 mg PO Q12H PRN #24 tab 08/05/21 Unknown Rx methOCARBAMOL [Robaxin TAB] 750 mg PO Q8H PRN #30 tab 08/05/21 Unknown Rx traMADoL [Ultram] 50 mg PO Q6HR PRN #12 tablet 08/05/21 Unknown Rx ED Physical Exam - General Limitations: No Limitations General appearance: alert, in no apparent distress - Head Head exam: Present: atraumatic, normocephalic, normal inspection - Eye Eye exam: Present: normal appearance, PERRL, EOMI Pupils: Present: normal accommodation - ENT ENT exam: Present: normal exam, normal orophraynx, mucous membranes moist, TM's normal bilaterally, normal external ear exam - Neck Neck exam: Present: normal inspection, full ROM. Absent: tenderness - Respiratory Respiratory exam: Present: normal lung sounds bilaterally. Absent: respiratory distress, wheezes, rales, rhonchi, chest wall tenderness - Cardiovascular Cardiovascular Exam: Present: regular rate, normal rhythm, normal heart sounds. Absent: systolic murmur, diastolic murmur, rubs, gallop - GI/Abdominal GI/Abdominal exam: Present: soft, normal bowel sounds. Absent: tenderness, hyperactive bowel sounds, hypoactive bowel sounds, organomegaly - Extremities Exam Extremities exam: Present: normal inspection, full ROM, normal capillary refill. Absent: tenderness, pedal edema, joint swelling, calf tenderness - Back Exam Back exam: Present: normal inspection, full ROM, tenderness (Palpable mid posterior thoracic and lumbar sacral paraspinal musculoskeletal tenderness), muscle spasm, paraspinal tenderness. Absent: CVA tenderness (R), CVA tenderness (L), vertebral tenderness - Neurological Exam Neurological exam: Present: alert, oriented X3, CN II-XII intact, normal gait, reflexes normal - Psychiatric Psychiatric exam: Present: normal affect, normal mood - Skin Skin exam: Present: warm, dry, intact, normal color. Absent: rash ED Course Vital Signs 08/05/21 08/05/21 10:23 13:46 Temperature 96.5 F L Pulse Rate 76 85 Respiratory 18 17 Rate Blood Pressure 180/91 153/87 [Left] O2 Sat by Pulse 99 99 Oximetry ED Medical Decision Making - Lab Data Result diagrams: 08/05/21 13:21 08/05/21 13:21 - Medical Decision Making This is a 55-year-old -[place] male with a history of hypertension, [id number] diabetes and coronary artery disease s/p AK and PTCA stents presents to the ED with complaint of acute onset persistent nontraumatic left-sided mid posterior thoracic and low back pain for the last 1 week, worse in the last 2 days. Patient states that the pain has been constant and persistent and worse with any movement or lifting or any physical activity. Patient states that he initially woke up with the pain but ignored it but in the last few days the pain has been persistent. The ED, patient is alert and oriented x3 and is not in any distress. Patient was treated for pain in the ED. Basic lab test results were reviewed and are all nonactionable. Patient symptoms are likely musculoskeletal as there was not trauma or injury associated with the pain. Patient was therefore discharged home on medications for pain and advised to follow-up with his primary care physician in 7 to 10 days for reevaluation or return to the ED immediately if symptoms get worse. - Differential Diagnosis Muscle spasm; muscle strain; UTI; ACS; Critical care attestation.: If time is entered above; I have spent that time in minutes in the direct care of this critically ill patient, excluding procedure time. ED Disposition Clinical Impression: Spasm of muscle of lower back, Strain of muscle and tendon of back wall of thorax, initial encounter Disposition: 01 HOME / SELF CARE / HOMELESS Is pt being admited?: No Does the pt Need Aspirin: No Condition: Stable Instructions: Muscle Cramps and Spasms, [id number], Muscle Strain, [id number], Back Injury Prevention, [id number], Thoracic Strain Rehab- [facility] Additional Instructions: All lab test results were reviewed and are all nonactionable. Your symptoms are likely due to musculoskeletal muscle strain or muscle spasm of your back. Therefore take medication with food, drink plenty of fluids and follow-up with your primary care physician in 7 to 10 days for reevaluation or return to the ED immediately if symptoms get worse. Prescriptions: Naproxen 500 mg PO Q12H PRN #24 tab PRN Reason: Pain , Severe (7-10) methOCARBAMOL [Robaxin TAB] 750 mg PO Q8H PRN #30 tab PRN Reason: Muscle Spasm traMADoL [Ultram] 50 mg PO Q6HR PRN #12 tablet PRN Reason: Pain Time of Disposition: 14:55 Print Language: [id number]
[2021-08-05 15:57] VITALS: BP 140/83
== END 2021-08-05 15:57 | disposition home or self-care (01) ==
LOC: ED 09:07
DX: S39.012A Strain of muscle, fascia and tendon of lower back, initial encounter (principal); M62.830 Muscle spasm of back; I11.9 Hypertensive heart disease without heart failure; E11.9 Type 2 diabetes mellitus without complications; Z98.890 Other specified postprocedural states; X58.XXXA Exposure to other specified factors, initial encounter; Y93.89 Activity, other specified; Y92.89 Other specified places as the place of occurrence of the external cause; Y99.8 Other external cause status
CPT/HCPCS: 36415; 80053; 84484; 85025; 99283